=== PATIENT | female | born 1965 | race Caucasian/White ===

== ENCOUNTER 2021-04-22 10:19 | Outpatient (REF) | payer OTHER, SELFPAY ==
--- NOTE | ~2021-04-22 | XR_ITS ---
EXAMINATION: XR CHEST CLINICAL INFORMATION: Chest pain. COMPARISON: None TECHNIQUE: 2 views of the chest were obtained. FINDINGS: No significant abnormality is noted involving the heart, lungs, mediastinum, bony thorax or soft tissues. XR/XR chest 2V IMPRESSION: Unremarkable chest examination.
== END 2021-04-22 10:20 | disposition home or self-care (01) ==
LOC: HO.XRAY 10:19
PROVIDERS: PCP Internal Medicine; Visit Provider Internal Medicine
DX: R07.89 Other chest pain (principal)
CPT/HCPCS: 71046; 99202

== ENCOUNTER → 2021-04-29 09:27 | Outpatient (BNVA) | payer OTHER, SELFPAY | PROVIDERS: PCP Internal Medicine; Visit Provider Internal Medicine ==

== ENCOUNTER → 2021-05-03 11:12 | Outpatient (BNVA) | payer OTHER, SELFPAY | PROVIDERS: PCP Internal Medicine; Visit Provider Internal Medicine Pulmonary Disease | DX: R05.9 Cough, unspecified (principal); K21.9 Gastro-esophageal reflux disease without esophagitis; Z79.899 Other long term (current) drug therapy | CPT/HCPCS: 99202 ==

== ENCOUNTER → 2021-06-16 10:12 | Outpatient (BNVA) | payer OTHER, SELFPAY | PROVIDERS: PCP Internal Medicine; Visit Provider Internal Medicine Pulmonary Disease | DX: R05.9 Cough, unspecified (principal); R13.10 Dysphagia, unspecified; K21.9 Gastro-esophageal reflux disease without esophagitis | CPT/HCPCS: 99212 ==

== ENCOUNTER → 2021-06-17 11:41 | Outpatient (BNVA) | payer OTHER, SELFPAY | PROVIDERS: Visit Provider Internal Medicine | DX: Z13.89 Encounter for screening for other disorder (principal) ==

== ENCOUNTER 2021-06-24 10:31 | Outpatient (REF) | payer OTHER, SELFPAY ==
--- NOTE | ~2021-06-24 | MR_ITS ---
EXAMINATION: MR SHOULDER WITHOUT CONTRAST, RIGHT CLINICAL INFORMATION: Right shoulder pain. COMPARISON: Right shoulder radiographs dated 10/27/2015. TECHNIQUE: MRI of the shoulder without contrast was performed on a high-field scanner. FINDINGS: ROTATOR CUFF: Full-thickness partial tearing through the central aspect of the supraspinatus tendon measuring 1.9 x 2.2 cm (AP by ML). There appear to be anterior and posterior tendon fibers remaining intact. No muscle atrophy or fatty infiltration. BICEPS: Normal. CORACOACROMIAL ARCH: The undersurface of the acromion is curved with small subacromial spurs. Mild acromioclavicular osteoarthritis. LABRUM/CAPSULE: Focal fluid signal within the undersurface of the posterosuperior labrum, consistent with nondisplaced undersurface tearing. GLENOHUMERAL JOINT/MARROW: Degenerative cystic change within the superolateral humeral head. Small glenohumeral joint effusion. MR/MR shoulder RT wo con IMPRESSION: 1. Full-thickness partial tear through the central aspect of the supraspinatus tendon measuring 1.9 x 2.2 cm (AP by ML). 2. Mild acromioclavicular osteoarthritis with small subacromial spurs. 3. Nondisplaced undersurface tear of the posterosuperior labrum. 4. Small glenohumeral joint effusion.
== END 2021-06-24 10:32 | disposition home or self-care (01) ==
LOC: HO.MRI 10:31
PROVIDERS: Visit Provider Internal Medicine
DX: M25.511 Pain in right shoulder (principal)
CPT/HCPCS: 73221

== ENCOUNTER → 2021-07-26 12:41 | Outpatient (BNVA) | payer OTHER, SELFPAY | PROVIDERS: Visit Provider Nurse Practitioner Family | DX: Z13.89 Encounter for screening for other disorder (principal) ==

== ENCOUNTER 2024-03-13 13:05 | Outpatient (AMB) | payer MEDICARE, MEDICAID, SELFPAY ==
--- NOTE | 2024-03-13 13:07 | MHC.OFFVIS ---
Vital Signs 03/13/24 13:10 Height 5 ft Weight 150 lb 2.157 oz BMI 29.3 BP 118/74 Blood Pressure Location Lt brachial Position Sitting Pulse 90 Pulse Source Pulse Oximeter Pulse Oximetry (%) 97 Oxygen Delivery Method Room Air Intake Visit Reasons: FM/Arthritis Intake Note: Patient presents for follow up on fibromyalgia and arthritis. Allergies No Known Allergies Allergy (Verified 03/13/24 13:12) HPI HPI FM/Arthritis: Details: Left knee weakness after getting euflexxa from [facility] last year. She was unable to move her knee for 2 months. She was told by pain management that she cannot have any more cortisone injections in knees because she had many injections in knees. She has bracing. She is also using Tylenol as needed. She is not using any NSAIDs. 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 Polymyalgia rheumatica Undifferentiated inflammatory arthritis Fibromyalgia Recurrent depression Dyslipidemia Localized pain of right shoulder joint Benign recurrent vertigo Numbness Aching headache Adhesive capsulitis of right shoulder Sleep apnea Family History (Updated 03/13/24 @ 13:17 by Esther Holly CMA) Mother Cervical cancer Social History (Updated 03/13/24 @ 13:18 by Esther Holly CMA) Alcohol intake: never Patient Tobacco Use Status: Never used Tobacco Use of substances other than those prescribed or required for medical reasons: No Review of Systems Const All systems reviewed & are unremarkable except as noted in HPI and below Physical Exam Vital Signs: Last Vital Signs Pulse 90 03/13/24 13:10 BP 118/74 03/13/24 13:10 Pulse Ox 97 03/13/24 13:10 Oxygen Delivery Method Room Air 03/13/24 13:10 BMI result Body Mass Index 29.3 Const Other: General: Comfortable Skin: No lesions seen MSK: Tender to palpate along left medial joint line. Soft tissue swelling along left medial joint line present. She has limited full flexion of both knees. Assessment & Plan Assessment & Plan (1) Left knee pain: Comment: Chronic, which worsened after getting Euflexxa injections. She has history of osteoarthritis previously treated with cortisone injections. I will obtain x-rays for further evaluation of joint pathology. We discussed conservative management. Code(s): M25.562 - Pain in left knee Category: Medical Plan: Labs ordered prior to starting NSAID. After lab results are back, I will send prescription for meloxicam 15 mg daily I recommend that she apply heat to her knee regularly as she does not tolerate ice Continue to brace knee Try lidocaine patch applied to affected area as needed I will recommend physical therapy after x-ray results are reviewed PCP recently started duloxetine. Duloxetine is indicated to treat chronic knee pain from osteoarthritis. Patient is currently experiencing dizziness while on duloxetine. If dizziness resolved, recommend up titration of duloxetine. [facility] Return to clinic in 3 months Orders: Orders Creatinine Today M25.562 - Pain in left knee Alanine Aminotransferase Today M25.562 - Pain in left knee XR knee standing BI Today M25.562 - Pain in left knee Aspartate Amino Transferase Today M25.562 - Pain in left knee Complete Blood Count Auto Diff Today M25.562 - Pain in left knee Coding Level of Care Code Est Pt Level 3 (85837) Complex EM visit Add On G2211 Diagnoses Left knee pain M25.562
[2024-03-13 13:10] VITALS: BP 118/74; PULSE 90; O2SAT 97; BMI 29.3
== END 2024-03-13 13:48 | disposition home or self-care (01) ==
PROVIDERS: PCP Internal Medicine; Visit Provider Internal Medicine Rheumatology
DX: M25.562 Pain in left knee (principal)
CPT/HCPCS: 99213; G2211

== ENCOUNTER → 2024-03-13 13:05 | Outpatient (BNVA) | payer MEDICARE, MEDICAID, SELFPAY | PROVIDERS: PCP Internal Medicine; Visit Provider Internal Medicine Rheumatology | DX: M79.7 Fibromyalgia (principal); M25.562 Pain in left knee; M19.90 Unspecified osteoarthritis, unspecified site; G89.29 Other chronic pain | CPT/HCPCS: 99212 ==

== ENCOUNTER 2024-04-15 09:54 | Outpatient (REF) | payer MEDICARE, MEDICAID, SELFPAY ==
--- NOTE | ~2024-04-15 | XR_ITS ---
CLINICAL HISTORY: M25.562 - Pain in left knee 1 view left knee Comparison: CR/SR - XR KNEE STANDING BI - 04/15/24 10:48 EST Findings: No joint effusion. Patellofemoral osteophyte formation. No acute fracture or destructive lesion. IMPRESSION: 1. Patellofemoral osteoarthropathy. No joint effusion. This document has been electronically signed by: Devora Dunn MD on 04/16/2024 06:47:12
--- NOTE | ~2024-04-15 | XR_ITS ---
CLINICAL HISTORY: M25.562 - Pain in left knee 1 view bilateral knee Comparison: None Findings: No fractures or dislocations. Joint spaces are maintained on the right. There is medial joint space loss with medial and lateral compartment osteophyte formation on the left. No joint effusion. No radiopaque foreign body. IMPRESSION: 1. Medial and lateral compartment degenerative change on the left with mild medial joint space loss. 2. No significant degenerative change appreciated on right. This document has been electronically signed by: Devora Dunn MD on 04/16/2024 06:46:03
--- NOTE | ~2024-04-15 | XR_ITS ---
CLINICAL HISTORY: M25.562 - Pain in left knee 1 view left knee Comparison: CR/SR - XR KNEE STANDING BI - 04/15/24 10:48 EST Findings: No acute fracture. Patellofemoral compartment osteophyte formation and joint space loss. No effusion. IMPRESSION: 1. Patellofemoral osteoarthropathy This document has been electronically signed by: Devora Dunn MD on 04/16/2024 06:45:20
[2024-04-15 10:15] LABS: MANUAL DIFF FLAG NO
[2024-04-15 10:26] LABS: Basophils Percent Auto 0.4 % (0-2); Eosinophils Percent Auto 0.5 % (0-4); Hematocrit 39.9 % (37.0-47.0); Hemoglobin 13.5 g/dl (12.0-16.0); Imm Gran Abs Auto 0.01 X10*3/uL (0.00-0.03); Imm Gran Pct Auto 0.1 % (0.0-0.4); Lymphocytes Absolute Auto 3.2 X10*3/uL (1.2-4.9); Lymphocytes Percent Auto 42.6 % (20-40); Mean Corpuscular HGB Conc 33.8 g/dl (31.0-35.0); Mean Corpuscular Hemoglobin 28.1 pg (27.0-33.0); Mean Corpuscular Volume 83.1 fL (80.0-98.0); Mean Platelet Volume 8.5 fL (9.4-12.3); Monocytes Absolute Auto 0.5 X10*3/uL (0.1-1.2); Monocytes Percent Auto 6.4 % (2-11); Neutrophils Absolute Auto 3.7 x10*3/uL (2.0-8.3); Platelet Count 283 X10*3/uL (160-400); Red Cell Distribution Width 12.6 % (11.0-16.0); White Blood Count 7.5 X10*3/uL (4.8-10.8)
[2024-04-15 10:57] LABS: Alanine Aminotransferase 24 U/L (0-31); Aspartate Amino Transferase 25 U/L (5-31); Estimated Glomerular Filt Rate > 60
== END 2024-04-15 09:55 | disposition home or self-care (01) ==
LOC: HO.XRAY 09:54
PROVIDERS: PCP Internal Medicine; Visit Provider Internal Medicine Rheumatology
DX: M25.562 Pain in left knee (principal)
CPT/HCPCS: 36415; 73560; 73565; 82565; 84450; 84460; 85025

== ENCOUNTER → 2024-04-15 10:17 | Outpatient (BNV) | payer MEDICARE, MEDICAID, SELFPAY | PROVIDERS: PCP Internal Medicine; Visit Provider Radiology Diagnostic Radiology | DX: M25.562 Pain in left knee (principal) | CPT/HCPCS: 73560; 73565 ==

== ENCOUNTER 2024-06-12 09:27 | Outpatient (AMB) | payer MEDICARE, MEDICAID, SELFPAY ==
--- NOTE | 2024-06-12 09:30 | A.OFFVIS_ITS ---
Vital Signs 06/12/24 09:33 Height 4 ft 11.29 in Weight 148 lb BMI 29.6 BP 120/80 Blood Pressure Location Lt brachial Position Sitting Pulse 82 Pulse Source Pulse Oximeter Temp 97 F Pulse Oximetry (%) 97 Oxygen Delivery Method Room Air Intake Visit Reasons: Follow Up 3mo Intake Note: Patient presents for follow up on fibromyalgia and arthritis. Allergies No Known Allergies Allergy (Verified 03/13/24 13:12) HPI HPI Follow Up 3mo: Details: Chronic back pain has worsened this winter. Pain radiates to right hip and thigh. Pain is constant. Heat and massage helps. She continues to have left knee pain. She is using a brace. 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 Polymyalgia rheumatica Undifferentiated inflammatory arthritis Fibromyalgia Recurrent depression Dyslipidemia Localized pain of right shoulder joint Benign recurrent vertigo Numbness Aching headache Adhesive capsulitis of right shoulder Sleep apnea Family History Mother Cervical cancer Social History Alcohol intake: never Patient Tobacco Use Status: Never used Tobacco Review of Systems Const All systems reviewed & are unremarkable except as noted in HPI and below Physical Exam Vital Signs: Last Vital Signs Temp 97 F 06/12/24 09:33 Pulse 82 06/12/24 09:33 BP 120/80 06/12/24 09:33 Pulse Ox 97 06/12/24 09:33 Oxygen Delivery Method Room Air 06/12/24 09:33 BMI result Body Mass Index 29.6 Const Other: General: Comfortable Skin: No lesions seen MSK: Tender right lumbar paraspinal muscles and laterally. Normal lumbar flexion. Tender to palpate along left medial joint line. She has limited full flexion of both knees. Results Reviewed Results Reviewed: Bilateral knee x-ray from April 2024 reviewed. Labs from April 2024 reviewed. Assessment & Plan Assessment & Plan (1) Osteoarthritis of left knee: Comment: Improving with bracing and meloxicam. Code(s): M17.12 - Unilateral primary osteoarthritis, left knee Category: Medical Qualifiers: Osteoarthritis type: primary Qualified Code(s): M17.12 - Unilateral primary osteoarthritis, left knee Plan: She will start physical therapy local to her home Continue bracing Continue meloxicam 15 mg daily I will check labs for drug monitoring on chronic NSAID next visit PCP prescribed duloxetine. Consider increasing dose to 60mg daily as it is indicated to treat chronic knee pain from osteoarthritis Return to clinic in 3 months (2) Myofascial low back pain: Comment: Discussed conservative management. Code(s): M54.50 - Low back pain, unspecified Category: Medical Plan: Cyclobenzaprine 5 mg q.h.s. prn prescribed Apply heat to back She will use her massage her at home Apply lidocaine patch to back daily If pain does not improve in a few weeks, I will add physical therapy Return to clinic in 3 months Medications: New cyclobenzaprine 5 mg PO BEDTIME PRN 30 tabs 0RF muscle spasm Refilled meloxicam 15 mg PO DAILY 90 tabs 0RF Coding Level of Care Code Est Pt Level 4 (10587) Complex EM visit Add On G2211 Diagnoses Primary osteoarthritis of left knee M17.12 Osteoarthritis type: primary Myofascial low back pain M54.50
[2024-06-12 09:33] VITALS: BP 120/80; PULSE 82; TEMP 36.1; O2SAT 97; BMI 29.6
--- OUTSIDE RECORDS SUMMARY | 2024-06-12 11:05 | XMS_ITS | Clinical Summary ---
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 Role Phone Unavailable Primary Care Provider Unavailabl e Social History Tobacco Use Types Packs/Day Years Used Date Smoking Tobacco: Never Assessed Comments Unknown Sex and Gender Information Value Date Recorded Sex Assigned at Not on file Legal Sex Female 9:22 AM EST Gender Identity Not on file Sexual Orientation Not on file Plan of Treatment Health Maintenance Due Date Last Done Comments Breast Cancer Screening 1965 DTaP,Tdap,and Td Vaccines (1 - Tdap) 10/01/1983 Hepatitis B Vaccines (1 of 3 - 19+ 3-dose series) 10/01/1983 Cervical Cancer Screening: P ap Smear 1985 Pneumococcal Vaccine: 50+ Ye ars (1 of 1 - PCV) 2014 Zoster Vaccines (1 of 2) 2014 COVID-19 Vaccine (2023-2 5 season) 2023 Influenza Vaccine (#1) 2023 RSV Immunization Patients 60 + Years Old (1 - 1-dose 75+ series) 10/01/2039 HIB Vaccines Aged Out No longer eligi ble based on patient's age to complete this topic HPV Vaccines Aged Out No longer eligi ble based on patient's age to complete this topic Hepatitis A Vaccines Aged Out No long er eligible based on patient's age to complete this topic IPV Vaccines Aged Out No longer eligi ble based on patient's age to complete this topic MMR Vaccines Aged Out No longer eligi ble based on patient's age to complete this topic Meningococcal ACWY Vaccine Aged Out N o longer eligible based on patient's age to complete this topic Meningococcal B Vacine Aged Out No lo nger eligible based on patient's age to complete this topic Pneumococcal Vaccine: Pediat rics (0 to 5 Years) and At-Risk Patients (6 to 64 Years) Aged Out No longer eligible b ased on patient's age to complete this topic RSV Immunization Patients [place] 20 months Aged Out No longer eligible b ased on patient's age to complete this topic Varicella Vaccines Aged Out No longer eligible based on patient's age to complete this topic
== END 2024-06-12 10:19 | disposition home or self-care (01) ==
LOC: HO.RHES 09:28
PROVIDERS: PCP Internal Medicine; Visit Provider Internal Medicine Rheumatology
DX: M17.12 Unilateral primary osteoarthritis, left knee (principal); M54.50 Low back pain, unspecified
CPT/HCPCS: 99214; G2211

== ENCOUNTER → 2024-06-12 09:27 | Outpatient (BNVA) | payer MEDICARE, MEDICAID, SELFPAY | PROVIDERS: PCP Internal Medicine; Visit Provider Internal Medicine Rheumatology | DX: M17.12 Unilateral primary osteoarthritis, left knee (principal); M54.50 Low back pain, unspecified | CPT/HCPCS: 99212 ==

== ENCOUNTER 2024-09-16 09:42 | Outpatient (AMB) | payer MEDICARE, MEDICAID, SELFPAY ==
--- NOTE | 2024-09-16 09:44 | MHC.OFFVIS ---
Vital Signs 09/16/24 09:45 Height 4 ft 11 in Weight 148 lb 4 oz BMI 29.9 BP 110/70 Blood Pressure Location Lt brachial Position Sitting Pulse 110 H Pulse Source Pulse Oximeter Pulse Oximetry (%) 96 Oxygen Delivery Method Room Air Intake Visit Reasons: 3 Months Intake Note: Patient presents for follow up on fibromyalgia and arthritis. Accompanied by: Self / Same As Patient Allergies No Known Allergies Allergy (Verified 03/13/24 13:12) HPI HPI 3 Months: Details: Meloxicam is helping with back. Knee bracing is helping. She lost physical therapy order from last visit. Persistent right buttocks pain. 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 Polymyalgia rheumatica Undifferentiated inflammatory arthritis Fibromyalgia Recurrent depression Dyslipidemia Localized pain of right shoulder joint Benign recurrent vertigo Numbness Aching headache Adhesive capsulitis of right shoulder Sleep apnea Family History Mother Cervical cancer Social History Alcohol intake: never Patient Tobacco Use Status: Never used Tobacco Physical Exam Vital Signs: Last Vital Signs Pulse 110 H 09/16/24 09:45 BP 110/70 09/16/24 09:45 Pulse Ox 96 09/16/24 09:45 Oxygen Delivery Method Room Air 09/16/24 09:45 BMI result Body Mass Index 29.9 Const Other: General: Comfortable Skin: No lesions seen MSK: Tender to palpate along left medial joint line. She has limited full flexion of both knees. Assessment & Plan Assessment & Plan (1) Myofascial low back pain: Comment: Discussed conservative management. Code(s): M54.50 - Low back pain, unspecified Category: Medical Plan: Continue Cyclobenzaprine 5 mg q.h.s. prn Continue Apply heat to back She will use her massage her at home Apply lidocaine patch to back daily PT orderd Return to clinic in 3 months (2) Osteoarthritis of left knee: Comment: Improving with bracing and meloxicam. Code(s): M17.12 - Unilateral primary osteoarthritis, left knee Category: Medical Qualifiers: Osteoarthritis type: primary Qualified Code(s): M17.12 - Unilateral primary osteoarthritis, left knee Plan: She will start physical therapy. Pt reordered. Continue bracing Continue meloxicam 15 mg daily Weight loss discussed I will check labs for drug monitoring on chronic NSAID this visit PCP prescribed duloxetine 60mg to treat FMS and chronic knee pain from osteoarthritis Return to clinic in 3 months Orders: Orders Aspartate Amino Transferase Today M17.12 - Unilateral primary osteoarthritis, left knee, M54.50 - Low back pain, unspecified, Z79.1 - penitentiary (current) use of non-steroidal anti-inflammatories (NSAID) Alanine Aminotransferase Today M17.12 - Unilateral primary osteoarthritis, left knee, M54.50 - Low back pain, unspecified, Z79.1 - exterminator (current) use of non-steroidal anti-inflammatories (NSAID) Creatinine Today M17.12 - Unilateral primary osteoarthritis, left knee, M54.50 - Low back pain, unspecified, Z79.1 - exterminator (current) use of non-steroidal anti-inflammatories (NSAID) Medications: Changed From meloxicam 15 mg PO DAILY 90 tabs 0RF To meloxicam Dispense this rx 15 mg PO DAILY 90 tabs 1RF Refilled meloxicam 15 mg PO DAILY 90 tabs 0RF Coding Level of Care Code Est Pt Level 3 (34667) Complex EM visit Add On G2211 Diagnoses Myofascial low back pain M54.50 Primary osteoarthritis of left knee M17.12 Osteoarthritis type: primary
[2024-09-16 09:45] VITALS: BP 110/70; PULSE 110; O2SAT 96; BMI 29.9
--- OUTSIDE RECORDS SUMMARY | 2024-09-16 10:44 | XMS_ITS | Data Portability ---
Author Organization [facility], [facility] Address [address] [place] [address] Care Team Providers Care Manager [employer] Name Role Phone PAOALDANISHABRITTNIHENRIETTA JERRI Referring Provider Assessment No assessment recorded. Plan of Treatment Reminders Order Date Submit Date Provider Last Modified By Organization Details Last Modified Time Details Appointments None record ed. Lab None record ed. Referral None record ed. Procedures None record ed. Surgeries None record ed. Imaging None record ed. Medication Orders None record ed. Patient TargetsNo targets recorded. Patient InstructionsNo instructions recorded. Reason for Referral None Reported. Results Created Date Observation Date Name Description Value Unit Range Abnormal Flag Note LastModifiedBy Organization Detail LastModifiedTime 11/30/19 24 03/09/2023 soloi ng/asiya lua tic resul t No observ ation record ed. [email or web address] Not Available 11/02 06:44:17 Result Notes None recorded. Procedures Surgical History Date Name Laterality Status Provider Name and Address Organization Details Recorded Time 4 Euflexxa Knee Injection completed Brenda Johnson PA-C [address], [place], [address], [facility] 07/18/2023 14:15:21 4 Euflexxa Knee Injection completed Enrique Lynn PA-C [address], [place], [address], [facility] 07/12/2023 07:34:59 4 Euflexxa Knee Injection completed Brenda Johnson PA-C [address], [place], [address], [facility] 07/04/2023 08:41:46 Imaging Results None recorded. Procedure Notes None recorded. Medical Equipment None Reported. Allergies No known drug allergies Medications Name Sig Start Date Stop Date Status Note LastModified by Organization Details LastModified Time cyclobenzaprin e 10 mg tablet TAKE 1 TABLET BY MOUTH DAILY AT BEDTIME active Not Available Not Available No t Available amoxicillin 500 mg capsule TAKE 1 CAPSULE BY MOUTH EVERY 8 HOURS X 7 DAYS active Not Available Not Available No t Available oxcarbazepine 150 mg tablet TAKE 1 TABLET BY MOUTH EVERY MORNING AND 2 TABLETS AT BEDTIME active Not Available Not Available No t Available clindamycin HCl 300 mg capsule TAKE ONE CAPSULE BY MOUTH EVERY 8 HOURS UNTIL GONE active Not Available Not Available No t Available meloxicam 15 mg tablet TAKE 1 TABLET BY MOUTH DAILY WITH FOOD active Not Available Not Available No t Available hydrocortisone 2.5 % topical cream with perineal applicator APPLY A SMALL AMOUNT TO THE AFFECTED AREA THREE TIMES DAILY AND AFTER A BOWLEL MOVEMENT FOR 2 WEEKS NEEDED active Not Available Not Available No t Available amoxicillin 875 mg tablet TAKE 1 TABLET BY MOUTH TWICE DAILY active Not Available Not Available No t Available meclizine 25 mg tablet TAKE 1 TABLET BY MOUTH EVERY 12 HOURS NEEDED active Not Available Not Available No t Available albuterol sulfate HFA 90 mcg/actuation aerosol inhaler INHALE 2 PUFFS BY MOUTH EVERY 4 TO 6 HOURS NEEDED active Not Available Not Available No t Available hydroxyzine HCl 10 mg tablet TAKE 2 TABLETS BY MOUTH EVERY NIGHT AT BEDTIME AND 1 TABLET BY MOUTH EVERY DAY NEEDED FOR ANXIETY active Not Available Not Available No t Available loratadine 10 mg tablet TAKE 1 TABLET BY MOUTH EVERY NIGHT active Not Available Not Available No t Available escitalopram 10 mg tablet TAKE 1/2 TABLET BY MOUTH DAILY FOR 7 DAYS THEN TAKE 1 TABLET BY MOUTH DAILY active Not Available Not Available No t Available rosuvastatin 10 mg tablet TAKE 1 TABLET BY MOUTH AT BEDTIME active Not Available Not Available No t Available FreeStyle Lite Strips TEST TWICE DAILY DIRECTED active Not Available Not Available No t Available Vitals Date Recorded Body height Body mass index (BMI) Body weight Provider Name and Address Organization Details Last Updated DateTime 07/04/2023 152.4 cm 28.9 kg/m2 61214.67 g indigo wong [facility] 07/04/2023 10:23:34 Date Recorded Body height Body mass index (BMI) Body weight Provider Name and Address Organization Details Last Updated DateTime 07/12/2023 152.4 cm 28.9 kg/m2 61542.67 g JONATHAN YAN [facility] 07/12/2023 09:57:13 Date Recorded Body height Body mass index (BMI) Body weight Provider Name and Address Organization Details Last Updated DateTime 07/19/2023 152.4 cm 28.7 kg/m2 98221.08 g indigo wong [facility] 07/19/2023 09:55:02 Social History None recorded. Functional Status None recorded. Mental Status None recorded. Family History Nothing Reported. Medical History No medical history recorded. Gynecological HistoryNo gynecological history recorded. Obstetrics History GPAL:G 0 P 0 0 0 0 Past Encounters Encounter ID Performer Location Encounter Start Date Encounter Closed Date Diagnosis/Indication Diagnosis SNOMED-CT Code Diagnosis ICD10 Code Diagnosis Note [id number] Brenda Johnson PA-C [employer] [address] [place] [address] 07/04/2023 09:40:50 07/27/2023 15:15:49 Osteoarthritis of left knee joint 2666861395 21029 M17.12 Tear of me dial meniscus of knee 043749224 S83.249A [id number] JEN Pierson [address] [place] [address] 07/12/2023 09:37:43 08/02/2023 12:31:10 Osteoarthritis of left knee joint [id number] 32656 M17.12 [id number] JEN Cardona [address] [place] [address] 07/19/2023 09:42:29 08/10/2023 11:38:09 Osteoarthritis of left knee joint [id number] 65555 M17.12 Health Concerns Section Related Observation LastModified by Organization Detai ls LastModified Time None Recorded Concern Status LastModified by Organization Details LastModified Time None Recorded Advance Directives Directive None Recorded Payers Insurance Date Sequence Insurance Name Policy Number Policy Conroy Covered Member ID Conroy Member ID Guarantor Name 07/19/2023 2 MEDICAID-[place]: [facility] Enrique Fulton [id number] Enrique Fulton 07/19/2023 1 MEDICARE B-[place]: [facility] Enrique Fulton [id number] Enrique Fulton Notes Date Note Type Note Provider Name and Address Organization Details Recorded Time 07/04/2023 text/html I am seeing the patient today under the supervision of Dr. Albert who was available but who did not see the patient. HPI: Patient presenting today with known osteoarthritis of the left knee and a medial meniscus posterior root avulsion. Not happy with pain level and function of the knees. Is authorized for Euflexxa injection #1 today. No new injury. Has no interest in surgical intervention. Past family, medical, social history and review of systems has been reviewed, updated, and is located in the patient? s chart. Examination: Examination of the left knee reveals no effusion, erythema, or warmth. Injection site benign. Decreased range of motion. Point tender medial joint line. Calf is soft and nontender. 5/5 strength knee flexion and extension Impression: Left knee osteoarthritis and medial menisus posterior root avulsion Plan: Nature of the diagnosis discussed with the patient today. Patient agreed to proceed with an injection. Utilizing sterile technique, the left knee was injected with Euflexxa 1 unit. Patient tolerated the procedure well. Postinjection precautions reviewed. Recommended ice and rest for the next 24-48 hours. Follow-up as scheduled. [email or web address] speech recognition car electronics installer software was used to create portions of this document. An attempt at proofreading has been made to minimize errors. Please call for corrections. Brenda Johnson PA-C [address], [place], [address], [facility] 07/04/2023 22:22:23 07/12/2023 text/html I am seeing the patient today under the supervision of who was available but who did not see the patient. Reason For Visit Patient is here today for Euflexxa injections #2 of left knees. Patient reports no adverse reaction from previous injections. Physical Findings Evaluation of the knees reveal no evidence of infection, no significant joint effusion, no warmth, or erythema. The injection sites are benign. Calves are supple and nontender. 5/5 strength. Some discomfort with range of motion. Assessment ? Osteoarthritis of knee -left knees Plan After meticulous sterile preparation, they were injected with #2Euflexxa 20MG. Post-injection precautions were reviewed. I recommend ice, restriction of activities and re-evaluation next week for follow up injection. Enrique Lynn PA-C [address], [place], [address], [facility] 07/12/2023 10:15:05 07/19/2023 text/html I am seeing the patient today under the supervision of Dr. Hernández who was available but who did not see the patient. HPI: Patient presenting today with known osteoarthritis of the left knee. Not happy with pain level and function of the knees. Is authorized for Euflexxa injection #3 today. No new injury. Past family, medical, social history and review of systems has been reviewed, updated, and is located in the patient? s chart. Examination: Examination of the left knee reveals no effusion, erythema, or warmth. Injection site benign. Decreased range of motion. Point tender medial joint line. Calf is soft and nontender. 5/5 strength knee flexion and extension Impression: Left knee osteoarthritis Plan: Nature of the diagnosis discussed with the patient today. Patient agreed to proceed with an injection. Utilizing sterile technique, the left knee was injected with Euflexxa 1 unit. Patient tolerated the procedure well. Postinjection precautions reviewed. Recommended ice and rest for the next 24-48 hours. Follow-up as scheduled. [facility] speech recognition car electronics installer software was used to create portions of this document. An attempt at proofreading has been made to minimize errors. Please call for corrections. Brenda Johnson PA-C [address], [place], [address], [facility] 07/19/2023 10:24:21 OBGyn Episode No OBEpisode recorded.
== END 2024-09-16 10:38 | disposition home or self-care (01) ==
LOC: HO.RHES 09:43
PROVIDERS: PCP Internal Medicine; Visit Provider Internal Medicine Rheumatology
DX: M54.50 Low back pain, unspecified (principal); M17.12 Unilateral primary osteoarthritis, left knee
CPT/HCPCS: 99213; G2211

== ENCOUNTER → 2024-09-16 09:42 | Outpatient (BNVA) | payer MEDICARE, MEDICAID, SELFPAY | PROVIDERS: PCP Internal Medicine; Visit Provider Internal Medicine Rheumatology | DX: M54.50 Low back pain, unspecified (principal); M17.12 Unilateral primary osteoarthritis, left knee | CPT/HCPCS: 99212 ==

== ENCOUNTER 2024-10-02 13:35 | Outpatient (AMB) | payer MEDICARE, MEDICAID, SELFPAY ==
--- NOTE | 2024-10-02 13:40 | A.OFFVIS_ITS ---
Intake Visit Reasons: 6m [place] Allergies No Known Allergies Allergy (Verified 03/13/24 13:12) Medication List - Last Reconciled 10/02/24 by Doris López MD cyclobenzaprine 5 mg PO BEDTIME PRN diclofenac sodium 1% grams topical duloxetine 60 mg PO DAILY fluticasone propionate 50 mcg/actuation 2 sprays intranasal DAILY hydroxyzine HCl 50 mg PO BID meclizine 25 mg PO BID PRN meloxicam 15 mg PO DAILY metformin 500 mg PO BID omeprazole 40 mg PO BID 30 days oxcarbazepine 150 mg PO TID rosuvastatin 10 mg PO BEDTIME HPI Comments Details: 59 yo woman with h/o migraine type headaches started having right trigeminal neuralgia type of pain in 2022. 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 HEENT:?No headache, vision changes, hearing loss, nasal congestion, sore throat. Neurological:?No dizziness, syncope, seizures, numbness, tingling, weakness, tremors, memory loss. Psychiatric:?No anxiety, depression, mood swings, sleep disturbance, or hallucinations. Endocrine:?No heat/cold intolerance, polydipsia, polyuria, or hair/skin changes. Hematologic/Lymphatic:?No easy bruising, bleeding, or lymphadenopathy. Integumentary (Skin):?No rash, lesions, itching, or color changes. ? Physical Exam Neuro Other: Mental Status: Alert and oriented to person, place, and time. Normal attention. Normal spontaneous speech, fluency, and comprehension. No obvious issues with mood and memory. Affect is appropriate. Cranial Nerves: CN II: Visual montejo full to confrontation, visual acuity intact. CN III, IV, : Pupils equal, round, reactive to light and accommodation. Extraocular movements are normal. CN V: Facial sensation is normal. CN VII: Facial movements symmetrical. CN VIII: Hearing intact to bedside conversation is normal. CN IX, X: Palate elevates symmetrically. CN XI: Shoulder shrug and head turn symmetrical. CN XII: Tongue midline without atrophy or fasciculations. Motor: Bulk and tone normal in all extremities. No significant muscle weakness in arms and legs. No drift. Reflexes: Deep tendon reflexes 2+ and symmetric. Plantar response down-going bilaterally. Coordination: Fcaygf-ez-walm and zavs-to-khyz testing normal. No dysmetria. Gait and Station: No obvious gait abnormality. No ataxia or instability. Sensory: Intact to light touch, pinprick, and vibration. Romberg is negative. Extrapyramidal: Full facial expressions and blinking. No rigidity. Movements are appropriate with no tremor or abnormality. Speech: Normal; no dysarthria or tremor. Assessment & Plan Assessment & Plan (1) Trigeminal neuralgia of right side of face: Comment: MRI brain [facility] at [facility] in Dec 2022: R SCA is close to trigeminal artery, minor MVD. Code(s): G50.0 - Trigeminal neuralgia Category: Medical (2) Migraine: Code(s): G43.909 - Migraine, unspecified, not intractable, without status migrainosus Category: Medical Qualifiers: Migraine type: unspecified Status migrainosus presence: without status migrainosus Intractability: not intractable Qualified Code(s): G43.909 - Migraine, unspecified, not intractable, without status migrainosus Plan 1. Trigeminal neuralgia: It was stable with oxcarbazepine treatment. She was taking 2-3 and sometime for pills a day. 2. Migraine: Not significant at this time Medications: New oxcarbazepine 300 mg PO 3XD 270 tabs 1RF 90 days Coding Level of Care Code Est Pt Level 4 (77664) Diagnoses Trigeminal neuralgia of right side of face G50.0 Migraine without status migrainosus, not intractable, unspecified migraine type G43.909 Migraine type: unspecified Status migrainosus presence: without status migrainosus Intractability: not intractable
--- OUTSIDE RECORDS SUMMARY | 2024-10-02 13:43 | XMS_ITS | Data Portability ---
Author Organization [facility], [facility] Address [address] [place] [address] Care Team Providers Care [employer] Name Role Phone ROVERTOBRITTNIJERRI SHRESTHA Referring Provider Assessment No assessment recorded. Plan [...] Brenda Johnson PA-C [address] [facility], [place], [address], [facility] 07/18/2023 14:15:21 4 Euflexxa Knee Injection completed Enrique Lynn PA-C [address], [place], [address], [facility] 07/12/2023 07:34:59 4 Euflexxa Knee Injection completed Brenda Johnson PA-C [address], [place], [address], [facility] 07/04/2023 08:41:46 Imaging Results None recorded. Procedure [...] Updated DateTime 07/04/2023 152.4 cm 28.9 kg/m2 47329.67 g indigo wong [facility] 07/04/2023 10:23:34 Date Recorded Body height Body mass index (BMI) Body weight Provider Name and Address Organization Details Last Updated DateTime 07/12/2023 152.4 cm 28.9 kg/m2 96295.67 g JONATHAN YAN [facility] 07/12/2023 09:57:13 Date Recorded Body height Body mass index (BMI) Body weight Provider Name and Address Organization Details Last Updated DateTime 07/19/2023 152.4 cm 28.7 kg/m2 20242.08 g indigo wong [facility] 07/19/2023 09:55:02 Social History None recorded. Functional Status None recorded. Mental Status None recorded. Family History Nothing Reported. Medical History No medical history recorded. Gynecological HistoryNo gynecological history recorded. Obstetrics History GPAL:G 0 P 0 0 0 0 Past Encounters Encounter ID Performer Location Encounter Start Date Encounter Closed Date Diagnosis/Indication Diagnosis SNOMED-CT Code Diagnosis ICD10 Code Diagnosis Note [id number] Brenda Johnson PA-C [employer] [address] [place] [address] 07/04/2023 09:40:50 07/27/2023 15:15:49 Osteoarthritis of left knee joint [id number] 33029 M17.12 Tear of me dial meniscus of knee 802351449 S83.249A [id number] Enrique Lynn PA-C [employer] [address] [place] [address] 07/12/2023 09:37:43 08/02/2023 12:31:10 Osteoarthritis of left knee joint [id number] 13628 M17.12 [id number] Brenda Johnson PA-C [employer] [address] [place] [address] 07/19/2023 09:42:29 08/10/2023 11:38:09 Osteoarthritis of left knee joint [id number] 44306 M17.12 Health Concerns Section Related Observation LastModified by Organization Detai ls LastModified Time None Recorded Concern Status LastModified by Organization Details LastModified Time None Recorded Advance Directives Directive None Recorded Payers Insurance Date Sequence Insurance Name Policy Number Policy Conroy Covered Member ID Conroy Member ID Guarantor Name 07/19/2023 2 [place] [facility] Enrique Fulton [id number] Enrique Fulton 07/19/2023 1 MEDICARE [place]: [facility] [employer] Enrique Fulton [id number] Enrique Fulton Notes Date Note Type Note [...] reviewed, updated, and is located in the patient s chart. Examination: Examination of the left [...] the next 24-48 hours. Follow-up as scheduled. [facility] speech recognition direct support professional caregiver software was used to create portions of this document. An attempt at proofreading has been made to minimize errors. Please call for corrections. Brenda Johnson PA-C [address] [facility] [address], [place], [address], [facility] 07/04/2023 22:22:23 07/12/2023 text/html I am seeing [...] Some discomfort with range of motion. Assessment Osteoarthritis of knee -left knees Plan After meticulous sterile preparation, they were injected with #2Euflexxa 20MG. Post-injection precautions were reviewed. I recommend ice, restriction of activities and re-evaluation next week for follow up injection. Enrique Lynn PA-C [address], [place], [address], [facility] 07/12/2023 10:15:05 07/19/2023 text/html I am seeing [...] reviewed, updated, and is located in the patient s chart. Examination: Examination of the left [...] the next 24-48 hours. Follow-up as scheduled. [facility] speech recognition direct support professional caregiver software was used to create portions of this document. An attempt at proofreading has been made to minimize errors. Please call for corrections. Brenda Johnson PA-C [address], [place], [address], [facility] 07/19/2023 10:24:21 OBGyn Episode No OBEpisode recorded.
== END 2024-10-02 13:53 | disposition home or self-care (01) ==
PROVIDERS: PCP Internal Medicine; Visit Provider Psychiatry & Neurology Neurology
DX: G50.0 Trigeminal neuralgia (principal); G43.909 Migraine, unspecified, not intractable, without status migrainosus
CPT/HCPCS: 99214

== ENCOUNTER → 2024-10-02 13:35 | Outpatient (BNVA) | payer MEDICARE, MEDICAID, SELFPAY | PROVIDERS: PCP Internal Medicine; Visit Provider Psychiatry & Neurology Neurology | DX: G50.0 Trigeminal neuralgia (principal); G43.909 Migraine, unspecified, not intractable, without status migrainosus; Z79.899 Other long term (current) drug therapy | CPT/HCPCS: 99212 ==

== ENCOUNTER 2024-12-17 10:29 | Outpatient (AMB) | payer MEDICARE, MEDICAID, SELFPAY ==
[2024-12-17 10:36] VITALS: BP 120/70; PULSE 78; O2SAT 96; BMI 30.4
--- NOTE | 2024-12-17 10:36 | MHC.OFFVIS ---
Vital Signs 12/17/24 10:36 Height 4 ft 11 in Weight 150 lb 9.211 oz BMI 30.4 BP 120/70 Pulse 78 Pulse Source Pulse Oximeter Pulse Oximetry (%) 96 Oxygen Delivery Method Room Air Intake Visit Reasons: 3 Months Intake Note: Patient presents for follow up on fibromyalgia and arthritis. Accompanied by: Self / Same As Patient Allergies No Known Allergies Allergy (Verified 03/13/24 13:12) HPI HPI 3 Months: Details: She has had benefit with physical therapy. She is now able to stretch her back and have better posture. Left-sided back pain has improved. She has completed 6 weeks of physical therapy. 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 Polymyalgia rheumatica Undifferentiated inflammatory arthritis Fibromyalgia Recurrent depression Dyslipidemia Localized pain of right shoulder joint Benign recurrent vertigo Numbness Aching headache Adhesive capsulitis of right shoulder Sleep apnea Family History Mother Cervical cancer Social History Alcohol intake: never Patient Tobacco Use Status: Never used Tobacco Physical Exam Vital Signs: Last Vital Signs Pulse 78 12/17/24 10:36 BP 120/70 12/17/24 10:36 Pulse Ox 96 12/17/24 10:36 Oxygen Delivery Method Room Air 12/17/24 10:36 BMI result Body Mass Index 30.4 Const Other: General: Comfortable Skin: No lesions seen MSK: Tender paraspinal muscles and laterally from mid back to lower back. Good lumbar flexion. Assessment & Plan Assessment & Plan (1) Myofascial low back pain: Comment: Improved with physical therapy. Code(s): M54.50 - Low back pain, unspecified Category: Medical Plan: She will use Cyclobenzaprine 5 mg q.h.s. prn back pain on days where pain is uncontrolled Continue Apply heat to back Continue physical therapy Apply lidocaine patch to back daily Return to clinic in 6 months or sooner if needed (2) Osteoarthritis of left knee: Comment: Improving with bracing and meloxicam. Code(s): M17.12 - Unilateral primary osteoarthritis, left knee Category: Medical Qualifiers: Osteoarthritis type: primary Qualified Code(s): M17.12 - Unilateral primary osteoarthritis, left knee Plan: PT order from last visit contains order for knee strengthening. I encouraged her to start physical therapy for knee strengthening when she completes PT for back strengthening Continue bracing Continue meloxicam 15 mg daily Weight loss discussed Labs for drug monitoring on chronic NSAID ordered this visit PCP prescribed duloxetine 60mg to treat FMS and chronic knee pain from osteoarthritis Return to clinic in 6 months Orders: Orders Alanine Aminotransferase Today Z79.1 - [facility] (current) use of non-steroidal anti-inflammatories (NSAID) Aspartate Amino Transferase Today Z79.1 - intermediate project manager (current) use of non-steroidal anti-inflammatories (NSAID) Creatinine Today Z79.1 - [facility] (current) use of non-steroidal anti-inflammatories (NSAID) Medications: Refilled meloxicam Dispense this rx 15 mg PO DAILY 90 tabs 1RF cyclobenzaprine 5 mg PO BEDTIME PRN 30 tabs 0RF muscle spasm Coding Level of Care Code Est Pt Level 3 (78281) Complex EM visit Add On G2211 Diagnoses Myofascial low back pain M54.50 Primary osteoarthritis of left knee M17.12 Osteoarthritis type: primary
--- OUTSIDE RECORDS SUMMARY | 2024-12-17 12:54 | XMS_ITS | Clinical Summary ---
Author Organization [facility] it Address [address] [place] [address] Care Team Providers Care Human Resources Intern Name Role Phone Unavailable Primary Care Provider [...] DTaP,Tdap,and Td Vaccines (1 - Tdap) 10/01/1983 Cervical Cancer Screening: P ap Smear 1985 Pneumococcal Vaccine: 50+ Ye ars (1 of 1 - PCV) 2014 Zoster Vaccines (1 of 2) 2014 Depression Screening 04/02/2024 COVID-19 Vaccine ( - 2023-2 5 season) 2024 Influenza Vaccine (#1) 2024 RSV Immunization Adult Patie nts (1 - 1-dose 75+ series) 10/01/2039 HIB Vaccines Aged Out No longer eligi ble based on patient's age to complete this topic HPV Vaccines Aged Out No longer eligi ble based on patient's age to complete this topic Hepatitis A Vaccines Aged Out No long er eligible based on patient's age to complete this topic Hepatitis B Vaccines Aged Out No long er eligible [...] age to complete this topic Meningococcal B Vaccine Aged Out No l onger eligible based on patient's age to complete this topic RSV Immunization Patients Un [place] 20 months Aged Out No longer eligible b ased on patient's age to complete this topic Varicella Vaccines Aged Out No longer eligible based on patient's age to complete this topic
== END 2024-12-17 11:13 | disposition home or self-care (01) ==
LOC: HO.RHES 10:30
PROVIDERS: PCP Internal Medicine; Visit Provider Internal Medicine Rheumatology
DX: M54.50 Low back pain, unspecified (principal); M17.12 Unilateral primary osteoarthritis, left knee
CPT/HCPCS: 99213; G2211

== ENCOUNTER → 2024-12-17 10:29 | Outpatient (BNVA) | payer MEDICARE, MEDICAID, SELFPAY | PROVIDERS: PCP Internal Medicine; Visit Provider Internal Medicine Rheumatology | DX: M17.12 Unilateral primary osteoarthritis, left knee (principal); M54.50 Low back pain, unspecified; Z79.1 Long term (current) use of non-steroidal anti-inflammatories (NSAID) | CPT/HCPCS: 99212 ==

== ENCOUNTER 2025-03-31 11:41 | Outpatient (REF) | payer MEDICARE, MEDICAID, SELFPAY ==
[2025-03-31 15:20] LABS: Alanine Aminotransferase 25 U/L (0-31); Aspartate Amino Transferase 24 U/L (5-31); Estimated Glomerular Filt Rate > 60
--- OUTSIDE RECORDS SUMMARY | 2025-03-31 15:46 | XMS_ITS | Data Portability ---
Author Organization [facility], [facility] Address [address] [place] [address] Assessment No assessment recorded. Plan of Treatment Reminders Order Date Submit Date Provider Name Organization Details Last Modified By Last Modified Time Details Appointments None record ed. Lab None record ed. Referral None record ed. Procedures None record ed. Surgeries None record ed. Imaging None record ed. MedicationOrders None record ed. VaccineOrders None record ed. Patient TargetsNo targets recorded. Patient InstructionsNo instructions recorded. Reason for Referral None Reported. Procedures Surgical History Date Name Laterality Status Provider Name and Address Organization Details Recorded Time 4 Euflexxa Knee Injection completed Brenda Johnson PA-C [address], [place], [address], [facility] 07/18/2023 14:15:21 4 Euflexxa Knee Injection completed Enrique Lynn PA-C [address], [place], [address], [facility] 07/12/2023 07:34:59 4 Euflexxa Knee Injection completed Brenda Johnson PA-C [address], [place], [address], [facility] 07/04/2023 08:41:46 Imaging Results None recorded. Procedure Notes None recorded. Medical Equipment None Reported. Allergies No known drug allergies Medications Name Authored On Sig Start Date Stop Date Status Note Indication Fill Status Repeat Number Dispense Quantity LastModified by Organization Details LastModified Time albut rosanna sulfa te HFA 90 mcg/a ctuat ion aeros ol inhal er 4 09:41:56 INHA LE 2 PUFF S BY MOUT H EVER Y 4 TO 6 HOUR S NEED ED active Not Available Not availab le 0 Not Available Not Available [facility] 07/04/2023 09:41:56 amoxi cilli n 500 mg capsu le 4 09:41:56 TAKE 1 CAPS ULE BY MOUT H EVER Y 8 HOUR S X 7 DAYS active Not Available Not availab le 0 Not Available Not Available [facility] 07/04/2023 09:41:56 amoxi cilli n 875 mg table t 4 09:41:56 TAKE 1 TABL ET BY MOUT H TWIC E ELIESER Y active Not Available Not availab le 0 Not Available Not Available [facility] 07/04/2023 09:41:56 clind amyci n HCl 300 mg capsu le 4 09:41:56 TAKE ONE CAPS ULE BY MOUT H EVER Y 8 HOUR S UNTI L GONE active Not Available Not availab le 0 Not Available Not Available [facility] 07/04/2023 09:41:56 cyclo benza homero 10 mg table t 4 09:41:56 TAKE 1 TABL ET BY MOUT H ELIESER Y AT BEDT INDERJIT active Not Available Not availab le 0 Not Available Not Available [facility] 07/04/2023 09:41:56 hydro corti sone 2.5 % topic al cream with perin eal appli cator 4 09:41:56 APPL Y A SMAL L AMOU NT TO THE AFFE CTED AREA THRE E TIME S ELIESER Y AND AFTE R A BOWL EL MOVE MENT FOR 2 WEEK S NEED ED active Not Available Not availab le 0 Not Available Not Available [facility] 07/04/2023 09:41:56 lorat adine 10 mg table t 4 09:41:56 TAKE 1 TABL ET BY MOUT H EVER Y NIGH T active Not Available Not availab le 0 Not Available Not Available [facility] 07/04/2023 09:41:56 mecli zine 25 mg table t 4 09:41:56 TAKE 1 TABL ET BY MOUT H EVER Y 12 HOUR S NEED ED active Not Available Not availab le 0 Not Available Not Available [facility] 07/04/2023 09:41:56 melox icam 15 mg table t 4 09:41:56 TAKE 1 TABL ET BY MOUT H ELIESER Y WITH FOOD active Not Available Not availab le 0 Not Available Not Available [facility] 07/04/2023 09:41:56 oxcar bazep ine 150 mg table t 4 09:41:56 TAKE 1 TABL ET BY MOUT H EVER Y MORN ING AND 2 TABL ETS AT BEDT INDERJIT active Not Available Not availab le 0 Not Available Not Available [facility] 07/04/2023 09:41:56 rosuv astat in 10 mg table t 4 09:41:56 TAKE 1 TABL ET BY MOUT H AT BEDT INDERJIT active Not Available Not availab le 0 Not Available Not Available [facility] 07/04/2023 09:41:56 escit alopr am 10 mg table t 4 22:07:41 TAKE 1/2 TABL ET BY MOUT H ELIESER Y FOR 7 DAYS THEN TAKE 1 TABL ET BY MOUT H ELIESER Y active Not Available Not availab le 0 Not Available Not Available [facility] 07/18/2023 22:07:41 FreeS tyle Lite Strip s 4 22:07:41 TEST TWIC E ELIESER Y DIRE CTED active Not Available Not availab le 0 Not Available Not Available [facility] 07/18/2023 22:07:41 hydro xyzin e HCl 10 mg table t 4 22:07:41 TAKE 2 TABL ETS BY MOUT H EVER Y NIGH T AT BEDT INDERJIT AND 1 TABL ET BY MOUT H EVER Y DAY NEED ED FOR ANXI ETY active Not Available Not availab le 0 Not Available Not Available [facility] 07/18/2023 22:07:41 Vitals Date Recorded Body height Body mass index (BMI) Body weight Provider Name and Address Organization Details Last Updated DateTime 07/04/2023 152.4 cm 28.9 kg/m2 50447.67 g indigo wong [place] - [facility] 07/04/2023 10:23:34 Date Recorded Body height Body mass index (BMI) Body weight Provider Name and Address Organization Details Last Updated DateTime 07/12/2023 152.4 cm 28.9 kg/m2 59887.67 g JONATHAN YAN [facility] 07/12/2023 09:57:13 Date Recorded Body height Body mass index (BMI) Body weight Provider Name and Address Organization Details Last Updated DateTime 07/19/2023 152.4 cm 28.7 kg/m2 57444.08 g indigo wong [facility] 07/19/2023 09:55:02 Social History Social History Observation Description Date Observed Sex Unknown 04/01/2024 Legal Sex Female No social history survey screeners recorded No social history SDOH screeners recorded Functional Status None recorded. No Functional Screening assessment recorded No Functional SDOH screeners recorded Mental Status None recorded. No Mental Screening assessment recorded No Mental SDOH screeners recorded Family History Nothing Reported. Medical History No medical history recorded. Gynecological HistoryNo gynecological history recorded. Obstetrics History GPAL:G 0 P 0 0 0 0 Past Encounters Encounter ID Performer Location Encounter Start Date Encounter Closed Date Diagnosis/Indication Diagnosis SNOMED-CT Code Diagnosis ICD10 Code Diagnosis IMO Codes Diagnosis Note [id number] JEN Cardona [address] [place] [address] 07/04/2023 09:40:50 07/27/2023 15:15:49 Osteoarthritis of left knee joint 5907145286 43471 M17.12 Tear of me dial meniscus of knee 976154562 S83.249A [id number] JEN Pierson [address] [place] [address] 07/12/2023 09:37:43 08/02/2023 12:31:10 Osteoarthritis of left knee joint 4593889857 44422 M17.12 [id number] JEN Cardona [address] [place] [address] 07/19/2023 09:42:29 08/10/2023 11:38:09 Osteoarthritis of left knee joint [id number] 22083 M17.12 Health Concerns Section Related Observation LastModified by Organization Detai ls LastModified Time None Recorded Concern Status LastModified by Organization Details LastModified Time None Recorded SDOH Concern Status LastModified by Organization Detai ls LastModified Time None Recorded Advance Directives Directive None Recorded Payers Insurance Date Sequence Insurance Name Policy Number Policy Conroy Covered Member ID Conroy Member ID Guarantor Name 07/19/2023 2 [place] [facility] Enrique Fulton [id number] Enrique Fulton 07/19/2023 1 [place] B[place] [employer] Enrique Fulton [id number] Enrique Fulton Notes Date Note Type Note [...] the next 24-48 hours. Follow-up as scheduled. [employer] [place] speech recognition cyber workforce developer and manager software was used to create portions of this document. An attempt at proofreading has been made to minimize errors. Please call for corrections. Brenda Johnson PA-C [address] [facility] [address], [place], [address], [facility] 07/04/2023 [...] follow up injection. Enrique Lynn PA-C [address], [place], [address], [facility] 07/12/2023 [...] the next 24-48 hours. Follow-up as scheduled. [employer] speech recognition cyber workforce developer and manager software was used to create portions of this document. An attempt at proofreading has been made to minimize errors. Please call for corrections. Brenda Johnson PA-C [address], [place], [address], [facility] 07/19/2023 10:24:21 Care Team Name Role Member ID Specialty Address Phone None Recorded. OBGyn Episode No OBEpisode recorded.
--- OUTSIDE RECORDS SUMMARY | 2025-03-31 15:46 | XMS_ITS | Clinical Summary ---
Author Organization [facility] it Address [address] [place] [address] Care Team Providers Care Deburring Technician Name Role Phone Unavailable Primary Care Provider [...] 2) 2014 Depression Screening 04/02/2024 COVID-19 Vaccine (1 - 2024-2 6 season) 2024 Influenza Vaccine (#1) 2024 RSV [...]
== END 2025-03-31 11:42 ==
LOC: HO.HKASLDS 11:41
PROVIDERS: PCP Internal Medicine; Visit Provider Internal Medicine Rheumatology
DX: M17.12 Unilateral primary osteoarthritis, left knee (principal); M54.50 Low back pain, unspecified; Z79.1 Long term (current) use of non-steroidal anti-inflammatories (NSAID)
CPT/HCPCS: 36415; 82565; 84450; 84460